=== PATIENT | male | born 1990 | race Caucasian/White ===

== ENCOUNTER 2019-08-04 14:14 | Emergency (ER) | payer OTHER ==
[~2019-08-04] VITALS: Ht 188 cm; Wt 77.0 kg
[2019-08-04] MEDS ORDERED: VALA500T4 PO (14:49)
[2019-08-04] MEDS ORDERED: CHOL100012 PO (14:50)
[2019-08-04] MEDS ORDERED: MULT-658 PO (14:50)
[2019-08-04] MEDS ORDERED: MAGN250T8 PO (14:51)
--- NOTE | 2019-08-04 14:51 | NUR ---
PT RESTING WITH NO COMPLAINTS. CALL BUTTON IN LAP.
[2019-08-04 14:59] LABS: BASOPHILS # (AUTO) 0.03 x10^3/uL (0-0.1); BASOPHILS % (AUTO) 0 % (0-1); EOSINOPHILS # (AUTO) 0.02 x10^3/uL (0-0.4); EOSINOPHILS % (AUTO) 0 % (1-7); LYMPHOCYTES # (AUTO) 1.23 x10^3/uL (1-3.4); LYMPHOCYTES % (AUTO) 12 % (22-44); MD NO; MEAN CORPUSCULAR HEMOGLOBIN 30.6 pg (27.5-34.5); MEAN CORPUSCULAR HGB CONC 33.2 g/dL (33.2-36.2); MEAN CORPUSCULAR VOLUME 92.3 fL (81-97); MEAN PLATELET VOLUME 7.4 fL (7.4-10.4); MONOCYTES # (AUTO) 0.31 x10^3/uL (0.2-0.8); MONOCYTES % (AUTO) 3 % (2-9); NEUTROPHILS # (AUTO) 8.81 x10^3/uL (1.8-6.8); NEUTROPHILS % (AUTO) 85 % (42-75); PLATELET COUNT 377 x10^3/uL (130-400); RED BLOOD COUNT 5.06 x10^6/uL (4.38-5.82); RED CELL DISTRIBUTION WIDTH 13.4 % (9.4-14.8)
[2019-08-04 15:08] LABS: AMPHETAMINE SCREEN, URINE Negative (Negative); BARBITURATE SCREEN, URINE Negative (Negative); BENZODIAZEPINE SCREEN, URINE Negative (Negative); CANNABINOID SCREEN, URINE Negative (Negative); COCAINE SCREEN, URINE Negative (Negative); METHADONE SCREEN, URINE Negative (Negative); OPIATE SCREEN, URINE Negative (Negative)
[2019-08-04 15:10] LABS: ALBUMIN 4.6 g/dL (3.4-5.0); ANION GAP 6 mmol/L (5-15); CALCIUM 9.5 mg/dL (8.5-10.1); CHLORIDE 108 mmol/L (98-107); CREATININE 0.85 mg/dL (0.7-1.3)
[2019-08-04 16:01] VITALS: BP 137/81
== END 2019-08-04 16:02 | disposition home or self-care (01) ==
LOC: MERGE 14:14 → EDBD 14:14 → ED 15:22
DX: F41.1 Generalized anxiety disorder (principal); R00.2 Palpitations
CPT/HCPCS: 36415; 80048; 80307; 82040; 84443; 85025; 93005; 99284